=== PATIENT | female | born 1955 | race Caucasian/White ===

== ENCOUNTER 2016-12-27 06:50 | Day surgery (SDC) | payer BC ==
--- NOTE | ~2016-12-27 | EGD ---
EGD REPORT [facility] [address] [id number] NAME: BRAVO MORGAN : [birth year] STATUS : REG [facility]#: [id number] AGE: 61 ADM/REG DATE : 12/27/16 MR#: [id number] REPORT SERV DATE: 12/27/16 DICTATED BY: ELAINA HURT DATE: 12/27/16 REPORT STATUS : Draft TRANSCRIBED BY: [facility] DATE: 12/27/16 Endoscopy Center Patient Name: Bravo Mrogan Date of : 1955 Attending MD: ELAINA HURT, Procedure Date No Time: 12/27/2016 Procedure: Colonoscopy Indications: Screening for colorectal malignant neoplasm Referring MD: MANOJ MULLINS Medicines: Propofol per Anesthesia Complications: No immediate complications. Estimated blood loss: None. Procedure: Pre-Anesthesia Assessment: - ASA Grade Assessment: I - A normal, healthy patient. After I obtained informed consent, the scope was passed under direct vision. Throughout the procedure, the patient's blood pressure, pulse, and oxygen saturations were monitored continuously. The PCF [id number] was introduced through the anus and advanced to the terminal ileum. The colonoscopy was performed with ease. The patient tolerated the procedure well. The quality of the bowel preparation was good. Findings: The perianal and digital rectal examinations were normal. The terminal ileum appeared normal. A diffuse area of mildly erythematous mucosa was found in the distal rectum, most likely related to bowel prep. Pt has been asymptomatic. No biopsies or other specimens were collected for this exam. The exam was otherwise without abnormality on direct and retroflexion views. Impression: - The examined portion of the ileum was normal. - Erythematous mucosa in the distal rectum. No specimens collected. - The examination was otherwise normal on direct and retroflexion views. Recommendation: - Patient has a contact number available for emergencies. The signs and symptoms of potential delayed complications were discussed with the patient. Return to normal activities tomorrow. Written discharge instructions were provided to the patient. - Regular diet. - Discharge patient to home (with escort). - Continue present medications. EGD REPORT [address] [place]. [address] NAME: BRAVO MORGAN SOY : [birth year] STATUS : REG [facility] PAT#: [id number] AGE: 61 ADM/REG DATE : 12/27/16 MR#: [id number] REPORT SERV DATE: 12/27/16 DICTATED BY: ELAINA HURT DATE: 12/27/16 REPORT STATUS : Draft TRANSCRIBED BY: [employer] DATE: 12/27/16 - Repeat colonoscopy in 10 years for screening purposes. Procedure Code(s): --- Professional --- G0121, Colorectal cancer screening; colonoscopy on individual not meeting criteria for high risk Diagnosis Code(s): --- Professional --- K62.9, Disease of anus and rectum, unspecified Z12.11, Encounter for screening for malignant neoplasm of colon CPT copyright 2013 [employer]. All rights reserved. The codes documented in this report are preliminary and upon remote medical coder review may be revised to meet current compliance requirements. ELAINA HURT, 12/27/2016 8:58 AM This report has been signed electronically. Number of Addenda: 0 Note Initiated On: 12/27/2016 8:19 AM Scope Withdrawal Time 0 hours 6 minutes 25 seconds [id number] [place] [address]
[~2016-12-27 06:50] MED LIST: CO Q-10100 MG PO; FISH-EPA1000 MG PO; GLUCCHONDR PO; GRAPE SEED EXTRACT PO; MULTI-VIT HP PO
== END 2016-12-27 23:59 | disposition home or self-care (01) ==
LOC: DMU 06:50
PROVIDERS: Internal Medicine Gastroenterology
PROC: 0DJD8ZZ Inspection of Lower Intestinal Tract, Via Natural or Artificial Opening Endoscopic (ICD-10-PCS; principal; 2016-12-27 08:30)
DX: Z12.11 Encounter for screening for malignant neoplasm of colon (principal); K62.9 Disease of anus and rectum, unspecified; Z79.899 Other long term (current) drug therapy; Z98.890 Other specified postprocedural states